=== PATIENT | male | born 1940 | race Caucasian/White ===

== ENCOUNTER 2018-06-19 16:25 | Emergency (ER) | payer MEDICARE, OTHER ==
[2018-06-19 16:39] VITALS: BP 174/103
--- NOTE | 2018-06-19 16:47 | EDM.PDOC ---
ED HPI GENERAL MEDICAL PROBLEM - General Chief Complaint: Laceration Stated Complaint: PUNCTURE IN HAND [phone] Time Seen by Provider: 06/19/18 16:47 Source of Information: Reports: Patient, RN, RN Notes Reviewed History Limitations: Reports: No Limitations - History of Present Illness INITIAL COMMENTS - FREE TEXT/NARRATIVE: Pt presents to the ER with c/o puncture wound to the right palm of hand. He states he is unsure of when his last tetanus vaccination was. Patient states that was his main concern. Onset: Today, Sudden - Related Data Allergies Allergy/AdvReac Type Severity Reaction Status Date / Time metoprolol Allergy Difficulty Verified 06/19/18 16:46 Breathing rofecoxib [From Vioxx] Allergy Difficulty Verified 05/21/16 09:48 Breathing Home Meds: Home Meds Alendronate Sodium [Alendronate] 1 tab PO DAILY 02/04/14 [History] Allopurinol 300 mg PO DAILY 02/04/14 [History] Fluticasone/Salmeterol [Advair 250-50 Diskus] 1 puff INH BID 02/04/14 [History] Irbesartan [Avapro] 300 mg PO DAILY 02/04/14 [History] Potassium Chloride 10 meq PO DAILY 02/04/14 [History] Simvastatin 10 mg PO DAILY 02/04/14 [History] Testosterone Cypionate [Depo-Testosterone] 10 ml IM ASDIRECTED 02/04/14 [History ] Tiotropium [Spiriva Handihaler] 1 puff INH DAILY 02/04/14 [History] hydroCHLOROthiazide [Hydrochlorothiazide] 50 mg PO DAILY 02/04/14 [History] predniSONE [predniSONE Dose Pack] 10 mg PO ASDIRECTED 02/04/14 [History] Past Medical History Cardiovascular History: Reports: High Cholesterol, Hypertension Respiratory History: Reports: COPD Musculoskeletal History: Reports: Gout Social & Family History - Family History Family Medical History: Noncontributory - Caffeine Use Caffeine Use: Reports: None - Living Situation & Occupation Living situation: Reports: , with Spouse Occupation: Retired ED ROS GENERAL - Review of Systems Review Of Systems: ROS reveals no pertinent complaints other than HPI. ED EXAM, SKIN/RASH Exam: See Below Exam Limited By: No Limitations General Appearance: Alert, WD/WN, No Apparent Distress Eye Exam: Bilateral Eye: EOMI, Normal Inspection Ears: Normal External Exam, Hearing Grossly Normal Nose: Normal Inspection Throat/Mouth: Normal Inspection, Normal Voice, No Airway Compromise Head: Atraumatic, Normocephalic Neck: Normal Inspection, Supple, Non-Tender, Full Range of Motion Respiratory/Chest: No Respiratory Distress, No Accessory Muscle Use, Chest Non- Tender, Decreased Breath Sounds, Crackles (throughout) Cardiovascular: Normal Peripheral Pulses, Regular Rate, Rhythm, No Edema, No Gallop, No JVD, No Murmur, No Rub Peripheral Pulses: 2+: Radial (L), Radial (R) GI/Abdominal: Normal Bowel Sounds, Soft, Non-Tender (Male) Exam: Deferred Rectal (Males) Exam: Deferred Back Exam: Normal Inspection, Full Range of Motion Extremities: Normal Inspection, Normal Range of Motion, Non-Tender, No Pedal Edema, Normal Capillary Refill Neurological: Alert, Oriented, CN II-XII Intact, Normal Cognition, Normal Gait, Normal Reflexes, No Motor/Sensory Deficits Psychiatric: Normal Affect, Normal Mood Skin: Warm, Dry, Normal Color, No Rash, Other (puncture wound to the right palm , very minimal) Location, Skin: Upper Extremity, Right Lymphatic: No Adenopathy ED SKIN PROCEDURES - Foreign Body Removal Indication:: Appearance of a sliver in the right palm. \ Consent Obtained:: Patient Performing Doctor:: Juliet Mcgill Foreign Body Other Location Comment:: Right palm of hand Anesthesia Type: None Complications:: No Course - Vital Signs Last Recorded V/S: Last Vital Signs Temp 98.9 F 06/19/18 16:38 Pulse 90 06/19/18 16:38 Resp 15 06/19/18 16:38 BP 174/103 H 06/19/18 16:38 Pulse Ox 93 L 06/19/18 16:38 - Re-Assessments/Exams Free Text/Narrative Re-Assessment/Exam: 06/19/18 17:04 Tetanus vaccination was found in [facility] and found to be last given in 2013. Departure - Departure Time of Disposition: 16:58 Disposition: Home, Self-Care 01 Condition: Good Clinical Impression: Puncture wound - Discharge Information *PRESCRIPTION DRUG MONITORING PROGRAM REVIEWED*: No *COPY OF PRESCRIPTION DRUG MONITORING REPORT IN PATIENT OBI: No Instructions: Puncture Wound, [id number] Referrals: Pepper Valera PA [Primary Care Provider] - Forms: ED Department Discharge Additional Instructions: Monitor for signs of infection Follow up with your primary care facility
== END 2018-06-19 17:05 | disposition home or self-care (01) ==
LOC: DL.ED 16:25
DX: S61.431A Puncture wound without foreign body of right hand, initial encounter (principal); E78.00 Pure hypercholesterolemia, unspecified; I10 Essential (primary) hypertension; J44.9 Chronic obstructive pulmonary disease, unspecified; W45.8XXA Other foreign body or object entering through skin, initial encounter; Z88.8 Allergy status to other drugs, medicaments and biological substances; Z79.899 Other long term (current) drug therapy
CPT/HCPCS: 99282

== ENCOUNTER 2018-06-20 00:27 | Emergency (ER) | payer MEDICARE, OTHER ==
[2018-06-20] MEDS ORDERED: traMADol 50 MG Tab PO ONE (00:28)
[2018-06-20 00:47] VITALS: BP 186/115
[2018-06-20] MEDS ORDERED: Ketorolac 30 MG/ML SDV IVPUSH ONE (00:51)
--- NOTE | 2018-06-20 00:57 | EDM.PDOC ---
ED HPI GENERAL MEDICAL PROBLEM - General Chief Complaint: Respiratory Problem Stated Complaint: BACK PAIN,CANT BREATH Time Seen by Provider: 06/20/18 00:51 Source of Information: Reports: Patient History Limitations: Reports: No Limitations - History of Present Illness INITIAL COMMENTS - FREE TEXT/NARRATIVE: states onset pain left back area of the lungs about 8pm while lying in a recliner, then slowly gotten worse 9-10pm, then now has hard time breathing hurts to breath deeply. states had COPD and not if it's pleurisy or collapse lung or what. states was moving some things earlier today. Treatments STONE PLANER: Reports: Acetaminophen Left Upper Back Pain Score (Numeric/FACES): 4 - Related Data Allergies Allergy/AdvReac Type Severity Reaction Status Date / Time metoprolol Allergy Difficulty Verified 06/20/18 00:47 Breathing rofecoxib [From Vioxx] Allergy Difficulty Verified 06/20/18 00:47 Breathing Home Meds: Home Meds Alendronate Sodium [Alendronate] 35 mg PO DAILY 02/04/14 [History] Allopurinol 300 mg PO DAILY 02/04/14 [History] Fluticasone/Salmeterol [Advair 250-50 Diskus] 1 puff INH BID 02/04/14 [History] Irbesartan [Avapro] 300 mg PO DAILY 02/04/14 [History] Potassium Chloride 10 meq PO DAILY 02/04/14 [History] Simvastatin 5 mg PO DAILY 02/04/14 [History] Tiotropium [Spiriva Handihaler] 1 puff INH DAILY 02/04/14 [History] hydroCHLOROthiazide [Hydrochlorothiazide] 25 mg PO DAILY 02/04/14 [History] Albuterol/Ipratropium [DuoNeb 3.0-0.5 MG/3 ML] 1 inhalation INH ASDIRECTED PRN 06/20/18 [History] Calcium Citrate 630 mg PO BID 06/20/18 [History] Magnesium 250 mg PO DAILY 06/20/18 [History] Zinc 25 mg PO BEDTIME 06/20/18 [History] Past Medical History Cardiovascular History: Reports: High Cholesterol, Hypertension Respiratory History: Reports: COPD Gastrointestinal History: Reports: Cholelithiasis, Diverticulosis Genitourinary History: Reports: Prostate Disorder Musculoskeletal History: Reports: Gout - Past Surgical History GI Surgical History: Reports: Colonoscopy, Hernia Repair/Other Male Surgical History: Reports: TURP-Transurethral Resection of Prostate Social & Family History - Family History Family Medical History: Noncontributory - Tobacco Use Smoking Status *Q: Unknown Ever Smoked Second Hand Smoke Exposure: No - Caffeine Use Caffeine Use: Reports: Coffee - Recreational Drug Use Recreational Drug Use: No - Living Situation & Occupation Living situation: Reports: , with Spouse Occupation: Retired ED ROS GENERAL - Review of Systems Review Of Systems: ROS reveals no pertinent complaints other than HPI. ED EXAM, GENERAL - Physical Exam Exam: See Below Exam Limited By: No Limitations General Appearance: Alert, WD/WN, Anxious, Mild Distress Ears: Hearing Grossly Normal Throat/Mouth: Normal Voice, No Airway Compromise Head: Atraumatic Neck: Non-Tender, Full Range of Motion Respiratory/Chest: No Respiratory Distress, No Accessory Muscle Use, Rhonchi, Splinting Cardiovascular: Regular Rate, Rhythm GI/Abdominal: Soft, Non-Tender Back Exam: Other (left lower rhomboid muscle spasm on R/P. ) Neurological: Alert, Oriented, Normal Cognition, Normal Gait, No Motor/Sensory Deficits Psychiatric: Anxious Skin Exam: Warm, Dry, Normal Color Lymphatic: No Adenopathy Course - Vital Signs Last Recorded V/S: Last Vital Signs Temp 37.3 C 06/20/18 00:39 Pulse 92 06/20/18 00:39 Resp 28 H 06/20/18 00:39 BP 186/115 H 06/20/18 00:39 Pulse Ox 97 06/20/18 00:39 - Orders/Labs/Meds Orders: Active Orders 24 hr Category Date Time Status Chest 2V [CR] Urgent Exams 06/20/18 01:25 Taken Labs: Laboratory Tests 06/20/18 06/20/18 06/20/18 Range/Units 00:40 00:40 00:40 WBC 14.8 H (5.0-10.0) 10^3/uL RBC 4.95 (4.6-6.2) 10^6/uL Hgb 14.7 D (14.0-18.0) g/dL Hct 44.9 (40.0-54.0) % MCV 90.7 D (80-100) fL MCH 29.7 (27.0-34.0) pg MCHC 32.7 L (33.0-35.0) g/dL Plt Count 218 (150-450) 10^3/uL Neut % (Auto) 66.3 (42.2-75.2) % Lymph % (Auto) 23.2 (20.5-50.1) % [place] % (Auto) 8.2 H (2-8) % Eos % (Auto) 2.0 (1.0-3.0) % Baso % (Auto) 0.3 (0.0-1.0) % D-Dimer, Quantitative 229 (0-400) ng/mL Sodium 137 (135-145) mmol/L Potassium 3.9 (3.6-5.0) mmol/L Chloride 101 (101-111) mmol/L Carbon Dioxide 28.0 (21.0-31.0) mmol/L Anion Gap 11.9 BUN 15 (7-18) mg/dL Creatinine 0.9 (0.6-1.3) mg/dL Est Cr Clr Drug Dosing 70.92 mL/min Estimated GFR (MDRD) > 60 BUN/Creatinine Ratio 16.66 Glucose 144 H (74-105) mg/dL Calcium 9.0 (8.4-10.2) mg/dl Total Bilirubin 0.4 (0.2-1.0) mg/dL AST 26 (10-42) IU/L ALT 22 (10-60) IU/L Alkaline Phosphatase 64 (42-121) IU/L Troponin I < 0.02 (0.00-0.02) ng/ml Total Protein 7.0 (6.7-8.2) g/dl Albumin 4.2 (3.2-5.5) g/dl Globulin 2.8 Albumin/Globulin Ratio 1.50 Meds: Medications Discontinued Medications Generic Name Dose Route Start Last Admin Trade Name Freq PRN Reason Stop Dose Admin Ketorolac Tromethamine 15 mg 06/20/18 00:51 06/20/18 00:57 Toradol IVPUSH 06/20/18 00:52 15 mg ONETIME ONE Administration - Re-Assessments/Exams Free Text/Narrative Re-Assessment/Exam: 06/20/18 01:26 s/p IV toradol = better but not 100% 06/20/18 02:19 x-ray results discussed with pt who is feeling much better now. Departure - Departure Time of Disposition: 02:19 Disposition: Home, Self-Care 01 Condition: Good Clinical Impression: Pleuritic pain - Discharge Information Instructions: Chest Wall Pain, [id number] Forms: ED Department Discharge Additional Instructions: 1) try heat to sore areas 2) recheck if there is any change or concern rx given; tramadol 50mg bid prn x 8 - My Orders Last 24 Hours: My Active Orders 06/20/18 01:25 Chest 2V [CR] Urgent - Assessment/Plan Last 24 Hours: My Active Orders 06/20/18 01:25 Chest 2V [CR] Urgent
[2018-06-20 01:09] LABS: ANION GAP 11.9; CHLORIDE,CL 101 mmol/L (101-111); SODIUM,NA 137 mmol/L (135-145)
[2018-06-20] MEDS ORDERED: traMADol 50 MG Tab ONE (02:26)
== END 2018-06-20 02:35 | disposition home or self-care (01) ==
LOC: DL.ED 00:27
DX: R07.81 Pleurodynia (principal); E78.00 Pure hypercholesterolemia, unspecified; I10 Essential (primary) hypertension; J44.9 Chronic obstructive pulmonary disease, unspecified; Z88.8 Allergy status to other drugs, medicaments and biological substances; Z79.899 Other long term (current) drug therapy
CPT/HCPCS: 36415; 71046; 80053; 84484; 85025; 85379; 96374; 99285; J1885; A9270-GY

== ENCOUNTER 2020-05-09 05:54 | Day surgery (SDC) | payer MEDICARE, OTHER ==
[2020-05-09] MEDS ORDERED: fentaNYL 100 MCG/2 ML SDV IV ONE ×4 (05:55→07:13)
[2020-05-09] MEDS ORDERED: Midazolam 1 MG/ML 2 ML SDV IV ONE ×7 (05:55→07:11)
[2020-05-09] MEDS ORDERED: Sodium Chloride 0.9% 10 ML Syringe FLUSH PRN (06:00)
[2020-05-09] MEDS ORDERED: Dextrose 5%-0.45% NaCl 1,000 ML IV SCH (06:00)
[2020-05-09] MEDS ORDERED: Midazolam 1 MG/ML 2 ML SDV ONE (06:12)
[2020-05-09] MEDS ORDERED: fentaNYL 100 MCG/2 ML SDV ONE (06:13)
--- NOTE | 2020-05-09 08:31 | OR ---
DATE: 05/09/2020 PROCEDURE: Total colonoscopy, narrow band imaging, and multiple cold snare polypectomies. INSTRUMENT USED: PCF-H190DL Olympus video colonoscope. PREMEDICATIONS: Fentanyl 125 mcg intravenous, Versed 4 mg intravenous, nasal O2 cannula. The procedure was done under pulse oximetry, BP recording, and manager cardiac. INDICATION: The patient with Hemoccult-positive stools. Colonoscopic examination is done for detection of any polypoid lesions and removal, endoscopic hemostasis therapy if needed. DESCRIPTION OF PROCEDURE: Initial rectal exam showed polyp that could be felt at the fingertip. Rigid anoscopy showed small internal hemorrhoids without bleeding from them. The colonoscope was passed with ease. In the mid rectum, 1 cm sized sessile benign-appearing polyp was noted, NBI views were obtained, cold snare polypectomy was done, the tissue was retrieved and sent for histopathology. Numerous scattered diverticula were noted in the distal left colon along with significant deformity. In the distal descending colon, diminutive benign-appearing polyp was noted, cold snare polypectomy was done, the tissue was retrieved and sent for histopathology. The scope was passed with ease to the ileocecal area. Photographs taken of the normal-appearing cecum identified by double-bulged ileocecal folds. No bleeding was noted from any of the visualized areas at the commencement of the examination. The bowel preparation was found to be adequate, [place] scale 2 in all the regions, total score 6. No stricture. No vascular ectasia. No large isolated ulcers are seen. No evidence of diffuse inflammatory bowel disease in the form of friability, contact bleeding, or ulcerations. Probing the proximal sides of folds and flexures using adequate distention and clearing up the stool material, withdrawal of the scope was made, cecum to rectum time over 6 minutes. No bleeding was noted from any of the visualized areas at the completion of the examination. IMPRESSION: 1. Internal hemorrhoids. 2. Diverticulosis. 3. Multiple colonic polyps. The patient tolerated the procedure well. [facility] /[id number]
[2020-05-09 10:01] VITALS: BP 165/82; PULSE 74
== END 2020-05-09 09:26 | disposition home or self-care (01) ==
LOC: DL.ENDO 05:54
PROVIDERS: ATTEND Internal Medicine Gastroenterology
DX: D12.4 Benign neoplasm of descending colon (principal); D12.8 Benign neoplasm of rectum; K64.8 Other hemorrhoids; K57.30 Diverticulosis of large intestine without perforation or abscess without bleeding; E11.9 Type 2 diabetes mellitus without complications; E66.09 Other obesity due to excess calories; M19.90 Unspecified osteoarthritis, unspecified site; E78.5 Hyperlipidemia, unspecified; J43.9 Emphysema, unspecified; I10 Essential (primary) hypertension; L71.1 Rhinophyma; Z88.5 Allergy status to narcotic agent; Z87.891 Personal history of nicotine dependence; Z87.19 Personal history of other diseases of the digestive system; Z83.79 Family history of other diseases of the digestive system; Z98.890 Other specified postprocedural states; Z88.8 Allergy status to other drugs, medicaments and biological substances; Z68.29 Body mass index [BMI] 29.0-29.9, adult
CPT/HCPCS: 45385; 88305; J2250; J3010; J7042